=== PATIENT | male | born 1955 | race Caucasian/White ===

== ENCOUNTER 2021-01-17 12:00 | Emergency (ER) | payer MEDICARE, BC ==
[2021-01-17] MEDS ORDERED: Aspirin 81 MG Tab.Chew ONE (12:10)
[2021-01-17] MEDS ORDERED: Aspirin 81 MG Tab.Chew PO ONE (12:14)
[2021-01-17] MEDS ORDERED: Sodium Chloride 0.9% 10 ML Syringe FLUSH PRN (12:18)
--- NOTE | 2021-01-17 12:39 | EDM.PDOC ---
ED HPI GENERAL MEDICAL PROBLEM - General Chief Complaint: Cardiovascular Problem Stated Complaint: ARM NUMBNESS Time Seen by Provider: 01/17/21 12:20 Source of Information: Reports: Patient, Significant Other History Limitations: Reports: No Limitations - History of Present Illness INITIAL COMMENTS - FREE TEXT/NARRATIVE: Patient presents with numbness in left arm and fingers, tightness in left chest that started about 1100. Around 1000 he had been feeding his horses when he started feeling very tired and "just didn't feel good". He took nitro twice at home and a third one on the way here, which helped some. He says this is the same symptoms he had with his heart attack 8 years ago. He had two stents placed at that time. 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 Left Arm Pain Score (Numeric/FACES): 9 - Related Data Allergies Allergy/AdvReac Type Severity Reaction Status Date / Time bee venom protein (honey bee) Allergy Airway Verified 01/17/21 12:28 Tightness Penicillins Allergy Rash Verified 01/17/21 12:28 Home Meds: Home Meds Aspirin [Halfprin] 81 mg PO BRK 12/08/15 [History] Clopidogrel [Plavix] 75 mg PO BEDTIME 12/08/15 [History] Lisinopril 10 mg PO DAILY 12/08/15 [History] Metoprolol Succinate [Toprol XL] 25 mg PO DAILY 12/08/15 [History] Nitroglycerin [Nitrostat] 0.4 mg SL Q5M 12/08/15 [History] atorvaSTATin [Lipitor] 40 mg PO BEDTIME 12/08/15 [History] metFORMIN [Glucophage] 500 mg PO BIDMEALS 12/08/15 [History] Acyclovir 800 mg PO DAILY 01/17/21 [History] Empagliflozin [Jardiance] 10 mg PO DAILY 01/17/21 [History] Famotidine 20 mg PO DAILY 01/17/21 [History] Past Medical History Cardiovascular History: Reports: High Cholesterol, Hypertension, [place], Stents Gastrointestinal History: Reports: None Neurological History: Reports: None Endocrine/Metabolic History: Reports: Diabetes, Type II - Infectious Disease History Infectious Disease History: Reports: Chicken Pox, Shingles - Past Surgical History Cardiovascular Surgical History: Reports: Carotid Stents ED ROS GENERAL - Review of Systems Review Of Systems: See Below Constitutional: Reports: Malaise, Weakness, Fatigue, Diaphoresis (briefly with symptom onset). Denies: Fever, Chills, Decreased Appetite HEENT: Denies: Ear Pain, Throat Pain, Vision Change Respiratory: Denies: Shortness of Breath, Cough Cardiovascular: Reports: Chest Pain (tightness). Denies: Lightheadedness, Syncope Endocrine: Reports: Fatigue GI/Abdominal: Reports: Nausea. Denies: Abdominal Pain, Diarrhea, Vomiting : Denies: Dysuria, Flank Pain Musculoskeletal: Reports: Arm Pain (left, with numbness). Denies: Neck Pain, Shoulder Pain, Back Pain Skin: Denies: Cyanosis, Jaundice, Mottled, Pallor, Diaphoresis Neurological: Denies: Confusion, Dizziness, Headache, Seizure, Syncope, Trouble Speaking, Difficulty Walking Psychiatric: Denies: Agitation, Anxiety, Confusion ED EXAM, GENERAL - Physical Exam Exam: See Below Exam Limited By: No Limitations General Appearance: Alert, WD/WN, No Apparent Distress Eye Exam: Bilateral Eye: EOMI, Normal Inspection, PERRL Ears: Normal External Exam, Hearing Grossly Normal Nose: Normal Inspection, No Blood Throat/Mouth: Normal Inspection, Normal Lips, Normal Voice, No Airway Compromise Head: Atraumatic, Normocephalic Neck: Normal Inspection, Full Range of Motion Respiratory/Chest: No Respiratory Distress, Lungs Clear, Normal Breath Sounds, No Accessory Muscle Use Cardiovascular: Regular Rate, Rhythm, No Murmur GI/Abdominal: Normal Bowel Sounds, Soft, Non-Tender, No Organomegaly, No Distention Back Exam: Normal Inspection, Full Range of Motion. No: CVA Tenderness (L), CVA Tenderness (R) Extremities: Normal Inspection, Normal Range of Motion Neurological: Alert, Oriented, Normal Cognition, No Motor/Sensory Deficits Psychiatric: Normal Affect, Normal Mood Skin Exam: Warm, Dry, Intact, Normal Color, No Rash #1 Interpretation EKG Date: 01/17/21 Rhythm: NSR (with frequent PVCs) Rate (Beats/Min): 85 QRS: Normal ST-T: Normal QT: Normal Course - Vital Signs Last Recorded V/S: Last Vital Signs Temp 98.6 F 01/17/21 12:15 Pulse 79 01/17/21 14:36 Resp 16 01/17/21 14:36 BP 108/62 01/17/21 14:36 Pulse Ox 97 01/17/21 14:36 - Orders/Labs/Meds Orders: Active Orders 24 hr Category Date Time Status EKG Documentation Completion [RC] ASDIRECTED Care 01/17/21 12:19 Active Peripheral IV Care [RC] . DIRECTED Care 01/17/21 12:19 Active TROPONIN I HIGH SENSITIVITY [CHEM] Timed Lab 01/17/21 15:20 Ordered Heparin Sodium/D5W 250 ml Med 01/17/21 14:15 Ordered IV TITRATE Nitroglycerin/D5W [Nitroglycerin 50 MG/D5W 250 ML] Med 01/17/21 14:30 Ordered 50 mg in 250 ml IV TITRATE Sodium Chloride 0.9% [Saline Flush] Med 01/17/21 12:18 Active 10 ml FLUSH Q8HR PRN Peripheral IV Insertion Adult [OM.PC] Routine Oth 01/17/21 12:18 Ordered EKG 12 Lead [EK] Stat Ther 01/17/21 12:18 Ordered Medication Orders Heparin Sodium/Dextrose () 250 mls @ 10.233 mls/hr IV TITRATE TE; Protocol Last Admin: 01/17/21 14:30 Dose: 12 units/kg/hr, 10.233 mls/hr Documented by: KYLE Cosigned by: ALFONSO Nitroglycerin/Dextrose (Nitroglycerin 50 Mg/D5w 250 Ml) 50 mg in 250 mls @ 1.5 mls/hr IV TITRATE TE; Protocol Last Admin: 01/17/21 14:33 Dose: 5 mcg/min, 1.5 mls/hr Documented by: KYLE Sodium Chloride (Sodium Chloride 0.9% 10 Ml Syringe) 10 ml FLUSH Q8HR PRN PRN Reason: keep vein open Last Admin: 01/17/21 12:20 Dose: 10 ml Documented by: ALFONSO Labs: Laboratory Tests 01/17/21 01/17/21 Range/Units 12:20 12:20 WBC 8.23 (5.00-10.00) 10^3/uL RBC 4.78 (4.50-6.00) 10^6/uL Hgb 15.1 (13.0-17.0) g/dL Hct 44.2 (40.0-52.0) % MCV 92.5 H D (82.0-92.0) fL MCH 31.6 H (27.0-31.0) pg MCHC 34.2 (32.0-36.0) g/dL RDW 13.5 (11.5-14.5) % Plt Count 177 (150-400) 10^3/uL MPV 10.2 (7.4-10.4) fL Add Manual Diff Yes Neutrophils % (Manual) 85 H (50-70) % Band Neutrophils % 10 (4-12) % Lymphocytes % (Manual) 2 L (20-40) % Monocytes % (Manual) 2 (2-8) % Eosinophils % (Manual) 1 (1-3) % Absolute Neutrophils 7.8185 Lymphocytes # (Manual) 0.1646 Monocytes # (Manual) 0.1646 Eosinophils # (Manual) 0.0823 Sodium 133 L (136-145) mmol/L Potassium 4.2 (3.5-5.1) mmol/L Chloride 100 (98-107) mmol/L Carbon Dioxide 24.0 (21.0-32.0) mmol/L Anion Gap 13.2 (5-15) mmol/L BUN 18 (7-18) mg/dL Creatinine 0.66 (0.51-1.17) mg/dL Est Cr Clr Drug Dosing 106.52 mL/min Estimated GFR (MDRD) > 60 mL/min Glucose 105 (70-140) mg/dL Calcium 8.3 L (8.7-10.3) mg/dL Total Bilirubin 0.5 (0.2-1.0) mg/dL AST 25 (15-37) U/L ALT 27 (14-63) U/L Alkaline Phosphatase 70 (46-116) U/L Troponin I High Sens 4.200 (0-76.000) pg/mL Total Protein 6.9 (6.4-8.2) g/dL Albumin 3.45 (3.40-5.00) g/dL Meds: Medications Generic Name Dose Route Start Last Admin Trade Name Freq PRN Reason Stop Dose Admin Heparin Sodium/Dextrose 250 mls @ 10.233 mls/hr 01/17/21 14:15 01/17/21 14:30 IV 12 units/kg/hr TITRATE TE 10.233 mls/hr Administration Protocol 12 UNITS/KG/HR Nitroglycerin/Dextrose 50 mg in 250 mls @ 1.5 mls/hr 01/17/21 14:30 01/17/21 14:33 Nitroglycerin 50 Mg/D5w 250 Ml IV 5 mcg/min TITRATE TE 1.5 mls/hr Administration Protocol 5 MCG/MIN Sodium Chloride 10 ml 01/17/21 12:18 01/17/21 12:20 Sodium Chloride 0.9% 10 Ml Syringe FLUSH 10 ml Q8HR PRN Administration keep vein open Discontinued Medications Generic Name Dose Route Start Last Admin Trade Name Dara PRN Reason Stop Dose Admin Aspirin Confirm 01/17/21 12:10 01/17/21 12:26 Aspirin 81 Mg Tab.Chew Administered 01/17/21 12:11 Not Given Dose 324 mg .ROUTE .STK-MED ONE Aspirin 324 mg 01/17/21 12:14 01/17/21 12:14 Aspirin 81 Mg Tab.Chew PO 01/17/21 12:15 324 mg ONETIME ONE Administration Heparin Sodium (Porcine) 4,000 units 01/17/21 14:01 01/17/21 14:29 Heparin Sodium 5,000 Units/Ml Vial IVPUSH 01/17/21 14:02 4,000 units ONETIME ONE Administration Sodium Chloride 1,000 mls @ 999 mls/hr 01/17/21 13:11 01/17/21 13:20 Normal Saline IV 01/17/21 14:11 999 mls/hr .BOLUS ONE Administration - Re-Assessments/Exams Free Text/Narrative Re-Assessment/Exam: 01/17/21 13:09 No EKG changes except his PVCs. Waiting on labs. Patient feeling the same, just the numbness in fingers and arm at this time. We have given aspirin 324mg. Discussed findings with patient and family. 01/17/21 14:21 I received a call back from [facility] (I had called a little earlier when first trop came back normal) and discussed case with the hospitalist who accepted and wants heparin bolus and drip started. However the [facility] coordinator informed him that she didn't know how long it would be before they would have room for him. Patient and family wanted me to try [facility] in [place]. After discussing case with Dr. Miles, he accepted for transfer and in addition to the heparin bolus/drip, wants nitro drip started. Discussed plan with patient and family. Departure - Departure Time of Disposition: 14:28 Disposition: DC/Tfer to Acute Hospital 02 Reason for Transfer *Q: Other (monitor) Condition: Good Clinical Impression: Chest pain radiating to arm, History of [place] (myocardial infarction) Referrals: Misael Caro [employer] [Primary Care Provider] - Forms: ED Department Discharge Sepsis Event Note (ED) - Evaluation Sepsis Screening Result: No Definite Risk - Focused Exam Vital Signs: Vital Signs Temp Pulse Resp BP Pulse Ox 01/17/21 14:36 79 16 108/62 97 01/17/21 12:15 98.6 F 87 13 110/67 98 - My Orders Last 24 Hours: My Active Orders 01/17/21 12:18 Sodium Chloride 0.9% [Saline Flush] 10 ml FLUSH Q8HR PRN Peripheral IV Insertion Adult [OM.PC] Routine EKG 12 Lead [EK] Stat 01/17/21 12:19 EKG Documentation Completion [RC] ASDIRECTED Peripheral IV Care [RC] . DIRECTED 01/17/21 14:15 Heparin Sodium/D5W 250 ml IV TITRATE 01/17/21 14:30 Nitroglycerin/D5W [Nitroglycerin 50 MG/D5W 250 ML] 50 mg in 250 ml IV TITRATE 01/17/21 15:20 TROPONIN I HIGH SENSITIVITY [CHEM] Timed - Assessment/Plan Last 24 Hours: My Active Orders 01/17/21 12:18 Sodium Chloride 0.9% [Saline Flush] 10 ml FLUSH Q8HR PRN Peripheral IV Insertion Adult [OM.PC] Routine EKG 12 Lead [EK] Stat 01/17/21 12:19 EKG Documentation Completion [RC] ASDIRECTED Peripheral IV Care [RC] . DIRECTED 01/17/21 14:15 Heparin Sodium/D5W 250 ml IV TITRATE 01/17/21 14:30 Nitroglycerin/D5W [Nitroglycerin 50 MG/D5W 250 ML] 50 mg in 250 ml IV TITRATE 01/17/21 15:20 TROPONIN I HIGH SENSITIVITY [CHEM] Timed
[2021-01-17 13:04] LABS: ANION GAP 13.2 mmol/L (5-15); CHLORIDE,CL 100 mmol/L (98-107); SODIUM,NA 133 mmol/L (136-145)
[2021-01-17] MEDS ORDERED: Sodium Chloride 0.9% 1,000 ML IV ONE (13:11)
[2021-01-17] MEDS ORDERED: Heparin Sodium 5,000 Units/ML Vial IVPUSH ONE (14:01)
[2021-01-17] MEDS ORDERED: Heparin Sodium/D5W 250 ML IV SCH (14:15)
[2021-01-17 14:37] VITALS: BP 108/62; PULSE 79
== END 2021-01-17 15:20 ==
LOC: KA.ED 12:00
DX: R07.89 Other chest pain (principal); E78.00 Pure hypercholesterolemia, unspecified; I10 Essential (primary) hypertension; I25.2 Old myocardial infarction; E11.9 Type 2 diabetes mellitus without complications; Z79.82 Long term (current) use of aspirin; Z79.02 Long term (current) use of antithrombotics/antiplatelets; Z79.84 Long term (current) use of oral hypoglycemic drugs; Z79.899 Other long term (current) drug therapy; Z95.5 Presence of coronary angioplasty implant and graft
CPT/HCPCS: 36415; 80053; 84484; 85025; 93005; 96365; 96368; 99284; 99285-25; A9270-GY; J1644; J7030

== ENCOUNTER 2022-03-06 06:58 | Day surgery (SDC) | payer MEDICARE, BC ==
[2022-03-06] MEDS ORDERED: Propofol 200 MG/20 ML SDV IV ONE (06:59)
[2022-03-06] MEDS ORDERED: Sodium Chloride 0.9% 10 ML Syringe FLUSH PRN (07:00)
[2022-03-06] MEDS ORDERED: Sodium Chloride 0.9% 1,000 ML IV SCH (07:00)
[2022-03-06] MEDS ORDERED: 50% Dextrose in Water 50 ML Syringe IVPUSH ONE (07:32)
[2022-03-06] MEDS ORDERED: Midazolam 1 MG/ML 2 ML SDV ONE (07:46)
[2022-03-06] MEDS ORDERED: Propofol 200 MG/20 ML SDV ONE ×2 (07:46→08:39)
[2022-03-06 10:54] VITALS: BP 125/71; PULSE 84
== END 2022-03-06 10:30 | disposition home or self-care (01) ==
LOC: KA.SDS 06:58
PROVIDERS: ATTEND Family Medicine
DX: Z12.11 Encounter for screening for malignant neoplasm of colon (principal); K57.30 Diverticulosis of large intestine without perforation or abscess without bleeding; K64.4 Residual hemorrhoidal skin tags; I25.10 Atherosclerotic heart disease of native coronary artery without angina pectoris; I10 Essential (primary) hypertension; G47.33 Obstructive sleep apnea (adult) (pediatric); E11.9 Type 2 diabetes mellitus without complications; E78.2 Mixed hyperlipidemia; E66.9 Obesity, unspecified; N52.9 Male erectile dysfunction, unspecified; Z91.030 Bee allergy status; Z86.010 Personal history of colon polyps; Z68.31 Body mass index [BMI] 31.0-31.9, adult
CPT/HCPCS: 00812; 82947; J2250; J2704; J7030

== ENCOUNTER 2025-05-19 07:04 | Day surgery (SDC) | payer MEDICARE, BC ==
[~2025-05-19 07:04] MED LIST: Sodium Chloride 0.9% 10 ML Syringe FLUSH PRN
[2025-05-19] MEDS ORDERED: Propofol 200 MG/20 ML SDV ONE (07:52)
[2025-05-19] MEDS ORDERED: Midazolam 1 MG/ML 2 ML SDV ONE (07:52)
[2025-05-19 10:08] VITALS: BP 116/71; PULSE 68
== END 2025-05-19 09:53 | disposition home or self-care (01) ==
LOC: KA.SDS 07:04
PROVIDERS: ATTEND Family Medicine
DX: Z12.11 Encounter for screening for malignant neoplasm of colon (principal); K57.30 Diverticulosis of large intestine without perforation or abscess without bleeding; K64.8 Other hemorrhoids; K62.89 Other specified diseases of anus and rectum; I25.10 Atherosclerotic heart disease of native coronary artery without angina pectoris; G47.33 Obstructive sleep apnea (adult) (pediatric); E11.9 Type 2 diabetes mellitus without complications; E78.2 Mixed hyperlipidemia; Z86.0101 Personal history of adenomatous and serrated colon polyps; Z79.899 Other long term (current) drug therapy
CPT/HCPCS: 82947; J2250; J2704; J7030